=== PATIENT | male | born 1960 | race Caucasian/White ===

== ENCOUNTER 2017-11-17 12:51 | Emergency (ER) | payer OTHER ==
[~2017-11-17] VITALS: Ht 182.9 cm; Wt 93.0 kg
[2017-11-17] MEDS ORDERED: KETOROLAC 30 MG/1 ML ONE (13:48)
[2017-11-17] MEDS ORDERED: ONDANSETRON 2MG/ML, 2ML ONE (13:57)
[2017-11-17] MEDS ORDERED: HYDROmorphone 2 MG/ML, 1ML ONE (13:57)
[2017-11-17] MEDS ORDERED: ONDANSETRON 2MG/ML, 2ML IVPush ONE (14:00)
[2017-11-17] MEDS ORDERED: HYDROmorphone 1 MG/ML, 1ML IVPush PRN (14:00)
[2017-11-17] MEDS ORDERED: PLEASE ENTER ALLERGIES MC SCH (14:00)
[2017-11-17] MEDS ORDERED: SODIUM CHLORIDE 0.9% 1,000ML IV ONE (14:00)
[2017-11-17] MEDS ORDERED: KETOROLAC 30 MG/1 ML IVPush ONE (14:00)
[2017-11-17] MEDS ORDERED: SODIUM CHLORIDE FLUSH 10ML SYR IVF ONE (14:00)
[2017-11-17 14:06] LABS: ALBUMIN 3.4 g/dL (3.4-5.0); ANION GAP 10 mmol/L (5-15); CALCIUM 9.1 mg/dL (8.5-10.1); CHLORIDE 107 mmol/L (98-107)
[2017-11-17 14:10] LABS: ALANINE AMINOTRANSFERASE 34 U/L (12-78); ALKALINE PHOSPHATASE 190 U/L (45-117); BILIRUBIN,TOTAL 1.1 mg/dL (0.2-1.0); CREATININE 0.84 mg/dL (0.7-1.3); TOTAL PROTEIN 7.6 g/dL (6.4-8.2)
[2017-11-17 14:13] LABS: CULTURE INDICATED? YES; MICROSCOPIC INDICATED
[2017-11-17 14:20] LABS: BASOPHILS # (AUTO) 0.02 x10^3/uL (0-0.1); BASOPHILS % (AUTO) 0 % (0-1); EOSINOPHILS % (AUTO) 4 % (1-7); LYMPHOCYTES # (AUTO) 1.75 x10^3/uL (1-3.4); LYMPHOCYTES % (AUTO) 24 % (22-44); MD NO; MEAN CORPUSCULAR HEMOGLOBIN 29.4 pg (27.5-34.5); MEAN CORPUSCULAR HGB CONC 34.2 g/dL (33.2-36.2); MEAN PLATELET VOLUME 7.2 fL (7.4-10.4); MONOCYTES # (AUTO) 0.68 x10^3/uL (0.2-0.8); MONOCYTES % (AUTO) 9 % (2-9); NEUTROPHILS # (AUTO) 4.69 x10^3/uL (1.8-6.8); NEUTROPHILS % (AUTO) 63 % (42-75); PLATELET COUNT 271 x10^3/uL (130-400); RED BLOOD COUNT 5.25 x10^6/uL (4.38-5.82)
[2017-11-17 15:27] VITALS: BP 162/82
== END 2017-11-17 16:38 | disposition home or self-care (01) ==
LOC: ED 14:00
DX: N20.2 Calculus of kidney with calculus of ureter (principal); R31.9 Hematuria, unspecified
CPT/HCPCS: 36415; 74176; 80053; 81001; 83690; 85025; 87086; 96361; 96374; 96375; 99285; J1170; J1885; J2405; J7030

== ENCOUNTER 2017-11-21 12:02 | Observation (INO) | payer OTHER ==
[~2017-11-21] VITALS: Ht 182.9 cm; Wt 83.3 kg
[2017-11-21 14:51] LABS: MICROSCOPIC AUTO
[2017-11-21] MEDS ORDERED: ONDANSETRON 2MG/ML, 2ML IVPush ONE (15:00)
[2017-11-21] MEDS ORDERED: KETOROLAC 30 MG/1 ML IVPush ONE (15:00)
[2017-11-21] MEDS ORDERED: HYDROmorphone 1 MG/ML, 1ML IVPush PRN (15:00)
[2017-11-21 15:02] LABS: CULTURE INDICATED? YES
[2017-11-21 18:00] VITALS: BP 107/65
[2017-11-21 19:26] VITALS: BP 123/72
[2017-11-21] MEDS ORDERED: MIDAZOLAM 1 MG/ML, 2ML ONE (19:41)
[2017-11-21] MEDS ORDERED: FENTANYL PF 250 MCG/5ML ONE (19:42)
[2017-11-21] MEDS ORDERED: PROPOFOL 10 MG/ML, 20ML ONE (19:42)
[2017-11-21] MEDS ORDERED: SODIUM CHLORIDE 0.9% PF 10ML ONE (19:43)
[2017-11-21] MEDS ORDERED: CEFAZOLIN 1,000 MG ONE ×2 (19:43)
[2017-11-21] MEDS ORDERED: ROCURONIUM 10 MG/ML,10ML ONE (19:55)
[2017-11-21] MEDS ORDERED: LABETALOL 5MG/ML, 20ML IV PRN (20:00)
[2017-11-21] MEDS ORDERED: ONDANSETRON 2MG/ML, 2ML IVPush PRN (20:00)
[2017-11-21] MEDS ORDERED: PROMETHAZINE 12.5 MG SUPP PR PRN (20:00)
[2017-11-21] MEDS ORDERED: hydrALAzine 20 MG/ML, 1ML IV PRN (20:00)
[2017-11-21] MEDS ORDERED: OXYcodone 5 MG/5 ML ORAL.SOL UDC PO PRN (20:00)
[2017-11-21] MEDS ORDERED: MEPERIDINE/PF 25MG/0.5ML IVPush PRN (20:00)
[2017-11-21] MEDS ORDERED: ACETAMINOPHEN 325 MG TABLET PO PRN ×2 (20:00→23:45)
[2017-11-21] MEDS ORDERED: NEOSTIGMINE 1 MG/ML, 10ML ONE (20:28)
[2017-11-21] MEDS ORDERED: GLYCOPYRROLATE 0.4 MG/2 ML, 2ML ONE (20:28)
[2017-11-21] MEDS ORDERED: MEPERIDINE/PF 50 MG/ML ONE (21:24)
[2017-11-21] MEDS ORDERED: OMNIPAQUE 350 MG/ML, 50 ML BOTTLE ONE (21:27)
[2017-11-21] MEDS ORDERED: FENTANYL PF 100 MCG/2ML ONE (21:37)
[2017-11-21] MEDS ORDERED: OXYcodone 5 MG/5 ML ORAL.SOL UDC ONE (21:37)
[2017-11-21] MEDS ORDERED: ACETAMINOPHEN 650 MG/20.3 ML UDC ONE (21:37)
[2017-11-21] MEDS ORDERED: LABETALOL 5MG/ML, 20ML ONE (21:38)
[2017-11-21] MEDS: FENTANYL PF 100 MCG/2ML IV PRN ×2 (21:39→21:58)
[2017-11-21] MEDS ORDERED: OPIUM/BELLADONNA SUPP.RECT 16.2-30 MG ONE (21:44)
[2017-11-21] MEDS ORDERED: OPIUM/BELLADONNA SUPP.RECT 16.2-30 MG PR PRN (22:30)
[2017-11-21] MEDS ORDERED: HYDROmorphone 2 MG/ML, 1ML ONE (22:36)
[2017-11-21] MEDS: HYDROmorphone 1 MG/ML, 1ML IV PRN ×2 (22:38→22:52)
[2017-11-21] MEDS: LACTATED RINGERS 1,000 ML IV SCH (23:45)
[2017-11-22] MEDS ORDERED: OPIUM/BELLADONNA SUPP.RECT 16.2-30 MG PR PRN
[2017-11-22 02:21] VITALS: BP 136/82
[2017-11-22 02:40] VITALS: BP 155/87
[2017-11-22] MEDS: DOCUSATE 100 MG CAPSULE PO PRN ×2 (05:15→07:12)
[2017-11-22] MEDS: KETOROLAC 10MG TABLET PO PRN (05:15)
[2017-11-22 07:04] VITALS: BP 147/86
[2017-11-22] MEDS: PHENAZOPYRIDINE 200 MG TABLET PO SCH ×3 (08:36→21:46)
[2017-11-22] MEDS: OXYcodone/APAP 5/325MG TABLET PO PRN ×3 (08:37→21:46)
[2017-11-22] MEDS: LACTATED RINGERS 1,000 ML IV SCH ×3 (08:37→17:30)
[2017-11-22 14:43] VITALS: BP 124/68
[2017-11-22 20:19] VITALS: BP 150/80
[2017-11-23] MEDS: OXYcodone/APAP 5/325MG TABLET PO PRN ×2 (02:10→07:21)
[2017-11-23 04:08] LABS: BASOPHILS # (AUTO) 0.01 x10^3/uL (0-0.1); BASOPHILS % (AUTO) 0 % (0-1); EOSINOPHILS % (AUTO) 8 % (1-7); LYMPHOCYTES # (AUTO) 0.92 x10^3/uL (1-3.4); LYMPHOCYTES % (AUTO) 23 % (22-44); MD NO; MEAN CORPUSCULAR HGB CONC 34.2 g/dL (33.2-36.2); MEAN CORPUSCULAR VOLUME 84.9 fL (81-97); MEAN PLATELET VOLUME 7.2 fL (7.4-10.4); MONOCYTES # (AUTO) 0.59 x10^3/uL (0.2-0.8); MONOCYTES % (AUTO) 15 % (2-9); NEUTROPHILS # (AUTO) 2.11 x10^3/uL (1.8-6.8); NEUTROPHILS % (AUTO) 54 % (42-75); PLATELET COUNT 221 x10^3/uL (130-400); RED BLOOD COUNT 4.19 x10^6/uL (4.38-5.82); RED CELL DISTRIBUTION WIDTH 12.4 % (9.4-14.8)
[2017-11-23 04:19] LABS: ANION GAP 7 mmol/L (5-15); CALCIUM 8.4 mg/dL (8.5-10.1); CHLORIDE 108 mmol/L (98-107)
[2017-11-23 04:21] LABS: CREATININE 0.75 mg/dL (0.7-1.3)
[2017-11-23 04:25] VITALS: BP 152/86
[2017-11-23 07:07] VITALS: BP 153/69
[2017-11-23] MEDS: PHENAZOPYRIDINE 200 MG TABLET PO SCH (07:21)
[2017-11-23] MEDS ORDERED: TAMS-11 PO (09:58)
[2017-11-23] MEDS ORDERED: PHEN-583 PO (09:58)
[2017-11-23] MEDS: KETOROLAC 10MG TABLET PO PRN (11:06)
[2017-11-23 12:40] VITALS: BP 122/71
== END 2017-11-23 13:05 | disposition home or self-care (01) ==
LOC: ED 15:21 → EDIP 16:43 → 4NOR 17:51 → DCLOUNGE 11-23 12:57
PROVIDERS: ADMIT Internal Medicine; ATTEND Internal Medicine
DX: N13.2 Hydronephrosis with renal and ureteral calculous obstruction (principal); F12.90 Cannabis use, unspecified, uncomplicated; I10 Essential (primary) hypertension; Z82.3 Family history of stroke; Z87.442 Personal history of urinary calculi
CPT/HCPCS: 36415; 52356; 74018; 74176; 74420; 80048; 81001; 85025; 87086; 96374; 96375; 99285; C1758; C1769; C2617; G0378; J0690; J1170; J1885; J2175; J2250; J2405; J2704; J2710; J3010; J7120; Q9967